=== PATIENT | female | born 1940 | race Caucasian/White ===

== ENCOUNTER 2019-05-10 12:25 | Outpatient (REF) | payer MEDICARE, BC, SELFPAY ==
[2019-05-10 21:40] LABS: BUN 11 mg/dL (7-18); CREATININE 0.73 mg/dL (0.55-1.02); Calcium 9.2 mg/dL (8.5-10.1); Calculated LDL 117 mg/dL; Chloride 103 mmol/L (98-107); Cholesterol 212 mg/dL (50-200); Glucose 85 mg/dL (70-100); HDL Cholesterol 79 mg/dL (40-60); Potassium 4.6 mmol/L (3.5-5.1); Sodium 141 mmol/L (136-145); Triglyceride 81 mg/dL (30-150)
== END 2019-05-10 12:45 ==
LOC: NCHCN 12:25
PROVIDERS: Visit Provider Family Medicine
DX: E87.6 Hypokalemia (principal); E78.89 Other lipoprotein metabolism disorders
CPT/HCPCS: 80048; 80061

== ENCOUNTER 2019-07-16 17:35 | Outpatient (REF) | payer MEDICARE, BC, SELFPAY ==
--- NOTE | 2019-07-16 14:45 | SKI_PTH ---
PATIENT: Kimberly Mendieta LOC: [facility] U#:[id number] AGE/SX: 78/F ROOM: RE07/16/[address]: Monet Marcus : 1940 BED: DIS: 07/16/2019 SPEC #: [id number] RECD: 07/17/19 12:24 STATUS: LEORA REQ #: [id number] MASHA: 07/16/19 14:[address]: Monet Marcus DEPT: Surgical Specimen RECD BY: Yodit Santamaria ENTERED: 07/17/19 12:25 SP TYPE: LAURIE URIAS DR: Michael Loyd Tissues: 1 - SKIN BIOPSY(SHAVE/PUNCH) Procedures: SKIN LEVEL 4 Comments: [id number]
== END 2019-07-16 17:55 ==
LOC: NCHCN 17:35
PROVIDERS: Visit Provider Family Medicine
DX: L82.1 Other seborrheic keratosis (principal)
CPT/HCPCS: 88305

== ENCOUNTER 2023-10-09 18:10 | Outpatient (REF) | payer MEDICARE, SELFPAY ==
[2023-10-09 21:45] LABS: HCT 43.5 % (36.0-46.0); HGB 14.7 g/dL (11.2-15.7); MCH 31.7 pg (27.0-33.0); MCHC 33.8 % (32.0-36.0); MCV 94 fL (80-95); MPV 9.6 fL (8.0-11.0); Platelet Count 322 10^3/uL (130-400); RBC 4.64 10^6/uL (3.93-5.22); RDW 13.2 % (11.7-14.6); RDW-SD 45.3 fL
[2023-10-09 22:24] LABS: ALT 32 U/L (14-59); AST 30 U/L (15-37); Albumin 4.2 g/dL (3.4-5.0); Alkaline Phosphatase 79 U/L (46-116); Anion Gap 6.7 mmol/L (3-11); BUN 11 mg/dL (7-18); Bilirubin, Total 0.5 mg/dL (0.2-1.0); CO2 30.3 mmol/L (21.0-32.0); CREATININE 0.8 mg/dL (0.55-1.02); Calcium 9.6 mg/dL (8.5-10.1); Calculated LDL 130 mg/dL (<100); Chloride 102 mmol/L (98-107); Cholesterol 243 mg/dL (<200); Estimated GFR 74.44 (mL/min/1.73m2); Folate > 20.0 ng/mL (8.6-20.0); Glucose 83 mg/dL (74-106); HDL Cholesterol 101 mg/dL (40-60); Potassium 4.5 mmol/L (3.5-5.1); Sodium 139 mmol/L (136-145); Total Protein 7.6 g/dL (6.4-8.2); Triglyceride 62 mg/dL (<150); Vitamin B12 472 pg/mL (193-986)
== END 2023-10-09 18:11 | disposition home or self-care (01) ==
LOC: NCHCN 18:10
PROVIDERS: Visit Provider Family Medicine
DX: Z13.220 Encounter for screening for lipoid disorders (principal); D64.9 Anemia, unspecified; K76.89 Other specified diseases of liver
CPT/HCPCS: 80053; 80061; 85027; 82607; 82746